=== PATIENT | female | born 1985 | race Two or more races ===

== ENCOUNTER 2024-12-03 18:30 | Emergency (ER) | payer MEDICAID, SELFPAY ==
--- NOTE | 2024-12-03 19:12 | PC.NURSE ---
PATIENT STATED THAT SHE WASN'T GOING TO STAY AND WAS GOING TO LEAVE. PATIENT LEFT THE ED AT THIS TIME.
== END 2024-12-03 19:23 | disposition left against medical advice (07) ==
LOC: SERX 19:23
PROVIDERS: Emergency Provider Emergency Medicine
DX: Z53.21 Procedure and treatment not carried out due to patient leaving prior to being seen by health care provider (principal)
CPT/HCPCS: 99283